=== PATIENT | female | born 1945 | race Caucasian/White ===

== ENCOUNTER 2016-12-19 10:40 | Day surgery (SDC) | payer MEDICARE ==
--- NOTE | 2016-12-19 07:29 | History and Physical Report ---
DATE: 12/18/2016. CHIEF COMPLAINT: This is a patient who had a spinal cord stimulator implanted roughly five to seven years ago. She has stopped using the system. HISTORY OF PRESENT ILLNESS: Evaluation of the battery showed complete battery depletion. She was given the option to replace or remove, and she opted to remove. PAST MEDICAL HISTORY: Hypertension, reflux esophagitis. PAST SURGICAL HISTORY: Spinal cord stimulator implant, mastectomy, hysterectomy , gallbladder surgery. EMPLOYMENT STATUS: Retired. MEDICATIONS ON ADMISSION: To be provided. ALLERGIES: Codeine. SOCIAL HISTORY: Noncontributory. FAMILY HISTORY: Noncontributory. REVIEW OF SYSTEMS: The patient seems appropriate and in no acute distress. The remainder of the systems review shows glasses, blood pressure problems, reflux, degenerative arthritis. PHYSICAL EXAMINATION: General: Height is 5 feet, 7 inches. Weight is 170 pounds. Vital Signs: Blood pressure is not available. HEENT: Within normal limits. Lungs: Clear. Heart: Regular rate and rhythm. Abdomen: Nontender. Musculoskeletal: Examination of the musculoskeletal system shows the insertion of the leads approximating T11-12. The generator is in the posterior gluteal margin. The incisional site is also identified and is intact. Sensory delarosa are intact. Neurologic: Cranial nerves are intact. IMPRESSION: 1. INTRACTABLE LUMBAR RADICULITIS. 2. SPINAL CORD STIMULATOR INTERNAL GENERATOR NONFUNCTIONAL. PLAN: The patient is here for removal of a nonfunctional system. The potential risks, side effects, and complications have all been discussed and reviewed in detail. The patient understands and accepts. ARMINDA CAREMN D.O. Date & Time JOB NUMBER: [id number] cc: Kae Gomez
[~2016-12-19 10:40] MED LIST: ACETAMINOPHEN 1,000 MG/100 ML BTL IV ONE; CEFAZOLIN 2 Gram 2 GM/50 ML BAG IVPB ONE; FAMOTIDINE 20MG TABLET PO ONE; MECLIZINE 25 MG TABLET PO ONE; METOCLOPRAMIDE 10 MG TABLET PO ONE
[2016-12-19] MEDS ORDERED: LIDOCAINE 2% MDV (20MG/ML) 20ML VIAL IV ONE (14:00)
[2016-12-19] MEDS ORDERED: CEFAZOLIN 1G VIAL IM ONE (14:00)
[2016-12-19] MEDS ORDERED: *PACU ONLY* KETAMINE HCL 10 MG/ML (20ML) VIAL IV ONE (14:00)
[2016-12-19] MEDS ORDERED: ALFENTANIL HCL 500 MCG/1ML, 2ML AMP IV ONE (14:00)
[2016-12-19] MEDS ORDERED: KETOROLAC 30 MG/ML VIAL IVP ONE (14:00)
[2016-12-19] MEDS ORDERED: PROPOFOL 10 MG/ML VIAL IV ONE (14:00)
[2016-12-19] MEDS ORDERED: LIDOCAINE 1% W/EPI 1:200,000 MPF 30ML SQ ONE (14:00)
[2016-12-19] MEDS ORDERED: FENTANYL PF 100MCG/2ML VIAL IV ONE (14:00)
[2016-12-19] MEDS ORDERED: BUPIVACAINE 0.5% W/EPI MPF 30 ML VIAL IVP ONE (14:00)
--- NOTE | 2016-12-19 16:53 | Operative Note - [place] ---
DATE OF SURGERY: 12/19/16 PREOPERATIVE DIAGNOSES: 1. LUMBAR RADICULITIS, ICD-10 CODE = M54.16 AND M54.17. 2. IMPLANTED SPINAL CORD STIMULATOR TWO LEADS INTERNAL GENERATOR, NONFUNCTIONAL. OPERATION: 1. INCISION, SUBCUTANEOUS DISSECTION, AND REMOVAL OF TWO SPINAL CORD STIMULATORS IMPLANTED. 2. INCISION, SUBCUTANEOUS DISSECTION, AND REMOVAL OF INDWELLING PULSE GENERATOR. SURGEON: ARMINDA CARMEN D.O. ANESTHESIA: LOCAL SEDATION. ANESTHESIA PROVIDER: ROBERTO DOYLE CRNA. INDICATION: This patient presents with a history of intractable lumbar radiculitis. A spinal cord stimulator implanted in 2003. Over the last 6-8 months, system began to malfunction. The patient turned it off but did not pursue reprogramming. She was evaluated within the last several months, given the option to reprogram, replace, or remove; she opted to remove. PROCEDURE: Intravenous line, vital sign monitoring, IV sedation, prepped and draped sterile technique. Patient position prone. Sterile prep. Sterile technique. At T12-L1, left of the midline where the leads under imaging were identified, skin infiltrated, incision made, and subcutaneous dissection was conducted to the anchors. Each of the anchors and the suture removed. The two Quadripolar leads were removed intact. At the left posterior/superior gluteal margin generator site, skin infiltrated, incision made, and subcutaneous dissection was conducted to the generator pouch. The generator was then exteriorized along with the interface to the leads. The leads and generator all removed intact as well as suture. Antibiotic irrigation and Bovie for hemostasis at all sites. The incisions were then closed Vicryl for fascia and running subcuticular Vicryl for skin. Dermabond closure system was then applied. She was transported to the Recovery Room stable, showing no side- effects from the procedure or the sedation. When fully awake and alert, she will be prepared for discharge. DISCHARGE INSTRUCTIONS: 1. Sites to remain clean and dry although Dermabond will allow showering in 24 hours. No scrubbing the sites. 2. Standard medications resumed including Levaquin, the antibiotic, 500 mg once a day for 14 days. 3. The office will contact the patient at home, set up the appointment to evaluate the sites in 5-7 days. Until then, she is to keep her activities low, limit bend, lift, push, pull. No immersing in bath, only showering. All other instructions provided, precautions given, numbers to contact, problems provided. cc: Dr. Moon JOB NUMBER: [id number] MTDD
== END 2016-12-19 13:30 | disposition home or self-care (01) ==
LOC: SUR 10:40
PROVIDERS: ATTEND Pain Medicine Interventional Pain Medicine
DX: T85.890A Other specified complication of nervous system prosthetic devices, implants and grafts, initial encounter (principal); I10 Essential (primary) hypertension; E03.9 Hypothyroidism, unspecified
CPT/HCPCS: 63661; 63688; 00300; J1885; J3010; J0690